=== PATIENT | male | born 1990 | race Caucasian/White ===

== ENCOUNTER 2018-08-02 04:25 | Emergency (ER) | payer BC ==
--- NOTE | 2018-08-02 05:23 | ER Document Report ---
ED Medical Screen (RME) - General Chief Complaint: Chest Pain Stated Complaint: CHEST PAIN Time Seen by Provider: 08/02/18 05:21 Mode of Arrival: Ambulatory Information source: Patient Notes: Patient is a 27-year-old male presents the emergency department chief complaint of left-sided chest pain that began at midnight. He states the pain has been persistent since then. He describes it as a squeezing sensation just under the left breast. He denies any recent heavy lifting or increased activity. He reports pain is worse with a deep breath but denies any increase of pain with palpation. He also denies any nausea, vomiting or diaphoresis. Exam: Heart sounds S1-S2 present with no ectopy noted. Lung sounds clear and equal bilaterally. I have greeted and performed a rapid initial assessment of this patient. A comprehensive ED assessment and evaluation of the patient, analysis of test results and completion of the medical decision making process will be conducted by additional ED providers. Dictation of this chart was performed using voice recognition software; therefore, there may be some unintended grammatical errors. Physical Exam - Vital signs Vitals: Temp Pulse Resp BP Pulse Ox 97.7 F 80 18 141/91 H 97 08/02/18 04:37 08/02/18 04:37 08/02/18 04:37 08/02/18 04:37 08/02/18 04:37 Course - Vital Signs Vital signs: Temp Pulse Resp BP Pulse Ox 97.7 F 80 18 141/91 H 97 08/02/18 04:37 08/02/18 04:37 08/02/18 04:37 08/02/18 04:37 08/02/18 04:37
[2018-08-02 06:09] LABS: ABSOLUTE EOSINOPHILS # (AUTO) 0.3 10^3/uL (0.0-0.6); ABSOLUTE LYMPHOCYTES (AUTO) 4.1 10^3/uL (0.5-4.7); ABSOLUTE MONOCYTES (AUTO) 1.1 10^3/uL (0.1-1.4); ABSOLUTE NEUT (AUTO) 5.2 10^3/uL (1.7-8.2); BASOPHILS % (AUTO) 0.4 % (0-2); EOSINOPHILS % (AUTO) 2.4 % (0-6); HEMATOCRIT 44.4 % (37.9-51.0); HEMOGLOBIN 15.2 g/dL (13.5-17.0); MEAN CORPUSCULAR HEMOGLOBIN 28.6 pg (27.0-33.4); MEAN CORPUSCULAR HGB CONC 34.1 g/dL (32.0-36.0); MEAN CORPUSCULAR VOLUME 84 fl (80-97); MONOCYTES % (AUTO) 10.7 % (3-13); PLATELET COUNT 185 10^3/uL (150-450); RED CELL DISTRIBUTION WIDTH 14.2 % (11.5-14.0); SEGMENTED NEUTROPHILS % (AUTO) 48.5 % (42-78); TOTAL CELLS COUNTED % (AUTO) 100 %; WHITE BLOOD COUNT 10.7 10^3/uL (4.0-10.5)
[2018-08-02 06:21] LABS: ALANINE AMINOTRANSFERASE 69 U/L (21-72); ALBUMIN 4.8 g/dL (3.5-5.0); ALKALINE PHOSPHATASE 69 U/L (38-126); ANION GAP 13 (5-19); ASPARTATE AMINO TRANSFERASE 42 U/L (17-59); BILIRUBIN,DIRECT 0.2 mg/dL (0.0-0.4); BILIRUBIN,TOTAL 0.6 mg/dL (0.2-1.3); BLOOD UREA NITROGEN 17 mg/dL (7-20); CALCIUM 9.7 mg/dL (8.4-10.2); CARBON DIOXIDE 27 mmol/L (22-30); CHLORIDE 104 mmol/L (98-107); GLUCOSE 124 mg/dL (75-110); POTASSIUM 4.4 mmol/L (3.6-5.0); SODIUM 143.9 mmol/L (137-145); TOTAL PROTEIN 7.8 g/dL (6.3-8.2)
--- NOTE | 2018-08-02 06:23 | RADIOLOGY REPORT (SQ) ---
EXAM DESCRIPTION: XR CHEST 1 VIEW COMPLETED DATE/TME: 08/02/2018 05:01 CLINICAL HISTORY: 27 years, Male, chest pain COMPARISON: None. NUMBER OF VIEWS: 1 TECHNIQUE: Portable chest LIMITATIONS: None. FINDINGS: Heart size normal. Lungs clear. No pneumothorax IMPRESSION: Negative chest copyright 2010 [employer]- All Rights Reserved
--- NOTE | 2018-08-02 10:36 | ER Document Report ---
ED General - General Chief Complaint: Chest Pain Stated Complaint: CHEST PAIN Time Seen by Provider: 08/02/18 05:21 Mode of Arrival: Ambulatory Information source: Patient, Relative, ON LICENSE OF [facility] Records Notes: Patient is a 27-year-old male with asthma presents the emergency department chief complaint of left-sided chest pain that began at midnight. He states the pain has been persistent since then. He describes it as a squeezing sensation just under the left breast. He denies any recent heavy lifting or increased activity. Does admit to increasing stress. He reports pain is worse with a adriana p breath but denies any increase of pain with palpation. He also denies any nausea, vomiting or diaphoresis. - HPI Onset: Yesterday Onset/Duration: Gradual, Persistent, Better Quality of pain: Pressure Severity: Moderate Pain Level: 2 Associated symptoms: Chest pain, Hurts to breath. denies: Fever, Leg swelling, Nausea, Vomiting, Shortness of breath Exacerbated by: Deep breathing Relieved by: Denies Similar symptoms previously: No Recently seen / treated by doctor: No - Related Data Allergies/Adverse Reactions: Corticosteroids (Glucocorticoids) Allergy (Verified 08/02/18 08:24) Past Medical History - General Information source: Patient - Social History Smoking Status: Never Smoker Frequency of alcohol use: Occasional Drug Abuse: None Lives with: Spouse/Significant other Family History: Reviewed & Not Pertinent Patient has suicidal ideation: No Patient has homicidal ideation: No Pulmonary Medical History: Reports: Hx Asthma Renal/ Medical History: Denies: Hx Peritoneal Dialysis Review of Systems - Review of Systems Notes: REVIEW OF SYSTEMS: CONSTITUTIONAL : Denies fever, chills, or sweats. Denies recent illness. Denies weight loss, recent hospitalizations. EENT: Denies visual changes, eye pain. Denies sore throat, oral lesions, difficulty swallowing. CARDIOVASCULAR: + chest pain. Denies palpitations. Denies lower extremity edema. RESPIRATORY: Denies cough. Denies shortness of breath, wheezing. GASTROINTESTINAL: Denies abdominal pain or distention. Denies nausea, vomiting, or diarrhea. Denies blood in vomitus, stools, or per rectum. Denies black, tarry stools. Denies constipation. GENITOURINARY: Denies difficulty urinating, painful urination, frequency, blood in urine, testicular pain or penile discharge. MUSCULOSKELETAL: Denies back or neck pain or stiffness. Denies joint pain or swelling. SKIN: Denies rash, lesions or sores. HEMATOLOGIC : Denies easy bruising or bleeding. LYMPHATIC: Denies swollen glands. NEUROLOGICAL: Denies confusion or altered mental status. Denies loss of consciousness. Denies dizziness or lightheadedness. Denies headache. Denies weakness or paralysis. Denies problems difficulty with ambulation, slurred speech. Denies sensory loss, numbness, or tingling. Denies seizures. PSYCHIATRIC: Denies anxiety or stress. Denies depression, suicidal ideation, or Physical Exam - Vital signs Vitals: Temp Pulse Resp BP Pulse Ox 97.7 F 80 18 141/91 H 97 08/02/18 04:37 08/02/18 04:37 08/02/18 04:37 08/02/18 04:37 08/02/18 04:37 - Notes Notes: PHYSICAL EXAMINATION: GENERAL: Well-appearing, well-nourished and in no acute distress. HEAD: Atraumatic, normocephalic. EYES: Pupils equal round and reactive to light, extraocular movements intact, sclera anicteric, conjunctiva are normal. ENT: Nares patent, oropharynx clear without exudates. Moist mucous membranes. NECK: Normal range of motion, supple without lymphadenopathy LUNGS: Breath sounds clear to auscultation bilaterally and equal. No wheezes rales or rhonchi. Left chest wall nontender HEART: Regular rate and rhythm without murmurs ABDOMEN: Soft, nontender, nondistended abdomen. No guarding, no rebound. No masses appreciated. Musculoskeletal: Normal range of motion, no pitting or edema. No cyanosis. NEUROLOGICAL: Cranial nerves grossly intact. Normal speech, normal gait. Normal sensory, motor exams PSYCH: Normal mood, normal affect. SKIN: Warm, Dry, normal turgor, no rashes or lesions noted. Course - Re-evaluation Re-evalutation: Laboratory 08/02/18 08/02/18 08/02/18 05:55 05:55 05:55 WBC 10.7 H RBC 5.30 Hgb 15.2 Hct 44.4 MCV 84 MCH 28.6 MCHC 34.1 RDW 14.2 H Plt Count 185 Seg Neutrophils % 48.5 Lymphocytes % 38.0 Monocytes % 10.7 Eosinophils % 2.4 Basophils % 0.4 Absolute Neutrophils 5.2 Absolute Lymphocytes 4.1 Absolute Monocytes 1.1 Absolute Eosinophils 0.3 Absolute Basophils 0.0 Sodium 143.9 Potassium 4.4 Chloride 104 Carbon Dioxide 27 Anion Gap 13 BUN 17 Creatinine 0.77 Est GFR ( Amer) > 60 Est GFR (Non-Af Amer) > 60 Glucose 124 H Calcium 9.7 Total Bilirubin 0.6 Direct Bilirubin 0.2 Neonat Total Bilirubin Not Reportable Neonat Direct Bilirubin Not Reportable Neonat Indirect Bili Not Reportable AST 42 ALT 69 Alkaline Phosphatase 69 Troponin I < 0.012 Total Protein 7.8 Albumin 4.8 Chest X-Ray 08/02/18 05:01 IMPRESSION: Negative chest copyright 2010 [employer]- All Rights Reserved Temp Pulse Resp BP Pulse Ox 98.2 F 74 17 138/78 H 98 08/02/18 06:15 08/02/18 06:15 08/02/18 10:41 08/02/18 10:41 08/02/18 10:41 08/02/18 10:35 HEART Score: History-1 ECG-0 Age-0 Risk Factors-0 Troponin-1 Total: 1 If HEART score is = 3 AND both troponin measurements are normal, the 30 day risk of a major adverse cardiac event (all-cause mortality, myocardial infarction or need for coronary revascularization) is < 1% (Sensitivity 100%, NPV 100%). Chest pain in a patient without evidence of cardiac or other serious etiology on workup today. I discussed with patient that, based on their age, risk factors and emergency department testing today, the likelihood that their symptoms are related to a heart attack is very low (estimated risk of heart attack or over the next 30 days of less than 1%). The patient demonstrates decision making capacity and has verbalized an understanding of these risks to me. Based on this, the patient has chosen to follow-up as an outpatient. Usual chest pain return precautions reviewed. The patient states understanding and agreement with this plan. Patient is PERC negative 08/02/18 11:45 - Vital Signs Vital signs: Temp Pulse Resp BP Pulse Ox 98.2 F 74 17 138/78 H 98 08/02/18 06:15 08/02/18 06:15 08/02/18 10:41 08/02/18 10:41 08/02/18 10:41 - Laboratory Result Diagrams: 08/02/18 05:55 08/02/18 05:55 Laboratory results interpreted by me: 08/02/18 08/02/18 05:55 05:55 WBC 10.7 H RDW 14.2 H Glucose 124 H - Diagnostic Test Radiology reviewed: Image reviewed, Reports reviewed - EKG Interpretation by Me EKG shows normal: Sinus rhythm Rate: Normal Rhythm: NSR When compared to previous EKG there are: No significant change Discharge - Discharge Clinical Impression: Chest pain Qualifiers: Chest pain type: unspecified Qualified Code(s): R07.9 - Chest pain, unspecified Condition: Good Disposition: HOME, SELF-CARE Instructions: Chest Pain of Unclear Cause ([facility]) Additional Instructions: You were seen today for chest pain. The exact cause of your pain is unclear. However, based on your cardiac enzyme testing, chest x-ray, and EKG it does not appear that it is from an immediately life-threatening cause at this time. Although your testing here is normal is critical that you follow-up with your primary care physician for continued evaluation of this chest pain and possible stress testing. I recommended you see your physician within the next 24-48 hours to be evaluated for consideration of a stress test. Please return to emergency department immediately if you have worsening of your chest pain, shortness of breath, vomiting, become unable to exert yourself due to pain or difficulty breathing, you pass out, or have any pain that radiates into your arms, jaw, or back. Please also return if you have any additional symptoms that are concerning to you. Forms: Elevated Blood Pressure
[2018-08-02 10:44] VITALS: BP 138/78
--- NOTE | 2018-08-03 07:50 | EKG REPORT ---
SEVERITY:- BORDERLINE ECG - SINUS RHYTHM NONSPECIFIC ST-T CHANGES- INFERIOR LEADS : Confirmed by: Raleigh Tatum MD 03-Aug-2018 07:49:44
== END 2018-08-02 11:00 | disposition home or self-care (01) ==
LOC: ER 04:25
DX: R07.89 Other chest pain (principal); J45.909 Unspecified asthma, uncomplicated; Z88.8 Allergy status to other drugs, medicaments and biological substances
CPT/HCPCS: 36415; 71045; 80053; 84484; 85025; 93005; 93010; 99285